=== PATIENT | male | born 1980 ===

== ENCOUNTER 2019-06-01 20:06 | Emergency (ER) | payer OTHER ==
[~2019-06-01] VITALS: Ht 175.3 cm; Wt 50.9 kg
[2019-06-01 21:39] LABS: BASOPHILS % (AUTO) 0.3 % (0-1); EOSINOPHILS # (AUTO) 0.2 X10'3 (0-0.9); EOSINOPHILS % (AUTO) 1.2 % (0-6); HEMATOCRIT 44.3 % (42.0-52.0); HEMOGLOBIN 15.3 g/dl (14.0-17.9); LYMPHOCYTES % (AUTO) 15.3 % (21-51); MEAN CORPUSCULAR HGB CONC 34.5 g/dL (33.0-36.5); MEAN CORPUSCULAR VOLUME 92.9 FL (78-98); MEAN PLATELET VOLUME 7.2 FL (7.4-10.4); MONOCYTES # (AUTO) 0.8 X10'3 (0-0.9); MONOCYTES % (AUTO) 6.2 % (2-12); NEUTROPHILS # (AUTO) 10.2 X10'3 (1.8-7.7); PLATELET COUNT 335 X10'3 (140-440); RED BLOOD COUNT 4.77 X10'6 (4.70-6.10); RED CELL DISTRIBUTION WIDTH 13.3 % (11.5-14.5); WHITE BLOOD COUNT 13.2 X10'3 (4.5-11.0)
[2019-06-01 21:45] LABS: ALANINE AMINOTRANSFERASE 24 U/L (12-78); ALBUMIN 3.3 G/DL (3.4-5.0); ALBUMIN/GLOBULIN RATIO 0.6 (1.1-1.5); ALKALINE PHOSPHATASE 95 IU/L (46-116); ANION GAP 8 (8-16); ASPARTATE AMINO TRANSFERASE 16 U/L (10-37); BILIRUBIN,TOTAL 0.8 MG/DL (0.1-1.0); BLOOD UREA NITROGEN 15 MG/DL (7-18); BUN/CREATININE RATIO 16.9 (5.4-32.0); CALCIUM 9.2 MG/DL (8.5-10.1); CHLORIDE 99 MMOL/L (99-107); CREATININE 0.89 MG/DL (0.60-1.10); GLUCOSE 112 MG/DL (70-104); POTASSIUM 3.8 MMOL/L (3.5-5.1); SODIUM 135 MMOL/L (135-145); TOTAL CARBON DIOXIDE 27.7 MMOL/L (24-32); TOTAL PROTEIN 8.8 G/DL (6.4-8.2); eGFR > 90 ML/MIN
[2019-06-01 21:51] LABS: PARTIAL THROMBOPLASTIN TIME 30 SECONDS (22-32)
[2019-06-01] MEDS ORDERED: CefTRIAXone 2gm/D5W 50ml 50 ML IV ONE (22:15)
[2019-06-01] MEDS ORDERED: ondansetron/PF 4mg/2ml inj IV ONE (22:15)
[2019-06-01] MEDS ORDERED: normal saline 1000ML IV soln IVB ONE (22:15)
[2019-06-01] MEDS ORDERED: azithromycin 250mg tablet PO ONE (22:15)
[2019-06-01] MEDS ORDERED: AZIT-63 PO (23:09)
[2019-06-01 23:27] VITALS: BP 124/74
== END 2019-06-01 23:29 | disposition home or self-care (01) ==
LOC: ER 20:07
DX: J18.1 Lobar pneumonia, unspecified organism (principal); E86.0 Dehydration; F17.210 Nicotine dependence, cigarettes, uncomplicated; Z79.2 Long term (current) use of antibiotics
CPT/HCPCS: 36415; 71045; 80053; 83605; 84145; 85025; 85610; 85730; 87040; 96365; 96375; 99284; J0696; J2405; J7030; 81003

== ENCOUNTER 2023-10-05 16:31 | Emergency (ER) | payer MEDICAID ==
[~2023-10-05] VITALS: Ht 175.3 cm; Wt 55.1 kg
[2023-10-05 18:32] VITALS: BP 155/93; PULSE 88; RESP 19; O2SAT 96
[2023-10-05] MEDS ORDERED: IBUP-1985 PO (18:39)
[2023-10-05] MEDS ORDERED: PROM118S5 PO (18:39)
[2023-10-05] MEDS ORDERED: ALBU8HFA INH (18:39)
[2023-10-05 18:45] VITALS: TEMP 98.9
== END 2023-10-05 18:46 | disposition home or self-care (01) ==
LOC: ER 16:32
DX: J06.9 Acute upper respiratory infection, unspecified (principal)
CPT/HCPCS: 71045; 99283